=== PATIENT | male | born 1975 | race African-American/Black ===

== ENCOUNTER 2016-08-23 21:42 | Emergency (ER) | payer BC | END 2016-08-23 22:00 | disposition home or self-care (01) | LOC: CFTX 21:42 | DX: S93.402A Sprain of unspecified ligament of left ankle, initial encounter (principal); F17.210 Nicotine dependence, cigarettes, uncomplicated; X58.XXXA Exposure to other specified factors, initial encounter; Y92.009 Unspecified place in unspecified non-institutional (private) residence as the place of occurrence of the external cause | CPT/HCPCS: 29540; 99283 ==